=== PATIENT | female | born 1970 | race Caucasian/White ===

== ENCOUNTER 2021-04-09 16:30 | Emergency (ER) | payer SELFPAY ==
[~2021-04-09] VITALS: Ht 165.1 cm; Wt 81.6 kg
--- NOTE | 2021-04-09 16:48 | EKG ---
[address] [address] Test Date: 2021-04-09 Test Time: 16:40:27 Pat Name: MARY JO SINGLETARY Department: Room: Gender: F [employer]: FAITH : 1970 Requested By: CRISTIAN GOYAL Order Number: [id number] Reading MD: Measurements Intervals [place] Rate: 74 P: 56 MI: 160 QRS: 14 QRSD: 98 T: 92 QT: 412 QTc: 458 Interpretive Statements SINUS RHYTHM QRS(T) CONTOUR ABNORMALITY CONSISTENT WITH INFERIOR INFARCT PROBABLY OLD T ABNORMALITY IN HIGH LATERAL LEADS ABNORMAL ECG RI6.02 No previous ECG available for comparison
[2021-04-09 17:10] LABS: BASO # 0.1 x10^3/uL (0.0-0.2); BASO % 1 % (0-3); EOS # 0.2 x10^3/uL (0.0-0.7); EOS % 2 % (0-3); HEMATOCRIT 43.2 % (36.0-47.0); HEMOGLOBIN 14.4 g/dL (12.0-15.5); LYMPH # 3.4 x10^3/uL (1.0-4.8); LYMPH % 29 % (24-48); MEAN CORPUSCULAR HEMOGLOBIN 31 pg (25-35); MEAN CORPUSCULAR HGB CONC 33 g/dL (31-37); MEAN CORPUSCULAR VOLUME 92 fL (79-100); MONO # 0.7 x10^3/uL (0.0-1.1); MONO % 6 % (0-9); NEUT # 7.2 x10^3uL (1.8-7.7); NEUT % 62 % (31-73); PLATELET COUNT 244 x10^3/uL (140-400); RED CELL DISTRIBUTION WIDTH 14.6 % (11.5-14.5); WHITE BLOOD COUNT 11.6 x10^3/uL (4.0-11.0)
[2021-04-09 17:17] LABS: CALCIUM 9.3 mg/dL (8.5-10.1); CREATININE 1.1 mg/dL (0.6-1.0); GFR 52.2; POTASSIUM 4.1 mmol/L (3.5-5.1)
[2021-04-09 17:22] LABS: ALBUMIN 3.8 g/dL (3.4-5.0); ALBUMIN/GLOBULIN RATIO 1.4 (1.0-1.7); TOTAL BILIRUBIN 0.3 mg/dL (0.2-1.0); TOTAL PROTEIN 6.6 g/dL (6.4-8.2)
--- NOTE | 2021-04-09 17:30 | RAD ---
AP chest. HISTORY: Chest pain AP view was taken of the chest. Lungs are clear. Heart is normal in size. There is no pleural effusio n. IMPRESSION: 1. No acute infiltrates. Electronically signed by: Tone Rick MD (04/09/2021 5:28 PM) [facility]
--- NOTE | 2021-04-09 17:33 | RAD ---
CT scan of the head without contrast 04/09/2021 Clinical History: Altered mental status Technique: Unenhanced, contiguous, 5 mm axial sections were obtained through the head. One or more of the following individualized dose reduction techniques were utilized for this study: 1. Automated exposure control. 2. Adjustment of the mA and/or kV according to patient size. 3. Use of iterative reconstruction technique. Findings: The ventricles and sulci are within normal limits in size and configuration. No acute paren chymal abnormality is seen. No extra-axial fluid collection is noted. No skull fracture is seen. A 1. 8 cm well-defined soft tissue nodule seen involving the superior right frontal parietal scalp. A smal ler nodule is seen lateral to this which measures 7 mm in size. These may represent sebaceous cysts, fibromas or possibly hemangiomas. Impression: No acute intracranial abnormality is seen. Electronically signed by: Elie Bedoya MD (04/09/2021 5:31 PM) [id number]
--- NOTE | 2021-04-09 17:42 | PHYS DOC ---
Past History Additional Past Medical Histor: uknown if there is other hx other than NE w/ stents (CRISTIAN GOYAL DO) Past Surgical History: Other Additional Past Surgical Histo: stents, unknown if other hx of sx's (CRISTIAN GOYAL DO) Alcohol Use: None (CRISTIAN GOYAL DO) General Adult EDM: Chief Complaint: SHORTNESS OF BREATH HPI: HPI: 50-year-old female presents via EMS with leg spasms and shortness of breath. The patient states that she was cleaning off her back porch when she started to have spasms of her lower legs. Her upper leg muscles just keep jhonny. Patient also felt like she was that short of breath and so ambulance was called by her family. Patient states she has never had an episode "this bad before". She does not go any details about what kind of previous episode she has had. She is not very forthcoming with information in general. She states the only medication that she takes is tramadol but does not tell me what it is for. She states that she took 1 of those today. Denies fever or chills. (CRISTIAN GOYAL DO) Review of Systems: Review of Systems: Constitutional: Denies fever or chills Eyes: Denies change in visual acuity HENT: Denies nasal congestion or sore throat Respiratory: Shortness of breath Cardiovascular: Denies chest pain or edema GI: Denies abdominal pain, nausea, vomiting, bloody stools or diarrhea : Denies dysuria Musculoskeletal: Denies back pain or joint pain Integument: Denies rash Neurologic: Leg muscle spasms. Denies headache, focal weakness or sensory changes Endocrine: Denies polyuria or polydipsia Lymphatic: Denies swollen glands Psychiatric: Denies depression or anxiety (CRISTIAN GOYAL DO) Allergies: Allergies: Allergies Coded Allergies Type Severity Reaction Last Updated Verified No Known Drug Allergies 04/09/21 No (CRISTIAN GOYAL DO) Physical Exam: PE: Constitutional: Well developed, well nourished, no acute distress, non-toxic appearance. [] HENT: Normocephalic, atraumatic, bilateral external ears normal, oropharynx moist, no oral exudates, nose normal. [] Eyes: PERRLA, EOMI, conjunctiva normal, no discharge. [] Neck: Normal range of motion, no tenderness, supple, no stridor. [] Cardiovascular: Heart rate regular rhythm, no murmur [] Lungs & Thorax: Bilateral breath sounds clear to auscultation [] Abdomen: Bowel sounds normal, soft, no tenderness, no masses, no pulsatile mass es. [] Skin: Warm, dry, no erythema, no rash. [] Back: No tenderness, no CVA tenderness. [] Extremities: No tenderness, no cyanosis, no clubbing, ROM intact, no edema. [] Neurologic: Jhonny of the upper leg muscles. Alert and oriented X 3, no focal deficits noted. [] Psychologic: Affect uncooperative, judgement normal, mood anxious. [] (CRISTIAN GOYAL DO) Current Patient Data: Labs: Laboratory Tests Test 04/09/21 16:46 White Blood Count 11.6 x10^3/uL (4.0-11.0) H Red Blood Count 4.70 x10^6/uL (3.50-5.40) Hemoglobin 14.4 g/dL (12.0-15.5) Hematocrit 43.2 % (36.0-47.0) Mean Corpuscular Volume 92 fL (79-100) Mean Corpuscular Hemoglobin 31 pg (25-35) Mean Corpuscular Hemoglobin Concent 33 g/dL (31-37) Red Cell Distribution Width 14.6 % (11.5-14.5) H Platelet Count 244 x10^3/uL (140-400) Neutrophils (%) (Auto) 62 % (31-73) Lymphocytes (%) (Auto) 29 % (24-48) Monocytes (%) (Auto) 6 % (0-9) Eosinophils (%) (Auto) 2 % (0-3) Basophils (%) (Auto) 1 % (0-3) Neutrophils # (Auto) 7.2 x10^3uL (1.8-7.7) Lymphocytes # (Auto) 3.4 x10^3/uL (1.0-4.8) Monocytes # (Auto) 0.7 x10^3/uL (0.0-1.1) Eosinophils # (Auto) 0.2 x10^3/uL (0.0-0.7) Basophils # (Auto) 0.1 x10^3/uL (0.0-0.2) Sodium Level 139 mmol/L (136-145) Potassium Level 4.1 mmol/L (3.5-5.1) Chloride Level 103 mmol/L (98-107) Carbon Dioxide Level 27 mmol/L (21-32) Anion Gap 9 (6-14) Blood Urea Nitrogen 15 mg/dL (7-20) Creatinine 1.1 mg/dL (0.6-1.0) H Estimated GFR (Cockcroft-Gault) 52.2 BUN/Creatinine Ratio 14 (6-20) Glucose Level 103 mg/dL (70-99) H Calcium Level 9.3 mg/dL (8.5-10.1) Total Bilirubin 0.3 mg/dL (0.2-1.0) Aspartate Amino Transferase (AST) 21 U/L (15-37) Alanine Aminotransferase (ALT) 37 U/L (14-59) Alkaline Phosphatase 92 U/L (46-116) Troponin I High Sensitivity 12 ng/L (4-50) Total Protein 6.6 g/dL (6.4-8.2) Albumin 3.8 g/dL (3.4-5.0) Albumin/Globulin Ratio 1.4 (1.0-1.7) Vital Signs: Vital Signs Date Time Temp Pulse Resp B/P (MAP) Pulse Ox O2 Delivery O2 Flow Rate FiO2 04/09/21 17:20 97.3 72 20 135/74 (94) 95 Room Air (CRISTIAN OGYAL DO) EKG: EKG: Sinus rhythm, rate 74, normal axis, no ST elevations or depressions. [] (CRISTIAN GOYAL DO) Radiology/Procedures: Radiology/Procedures: [] Impressions: AP chest. HISTORY: Chest pain AP view was taken of the chest. Lungs are clear. Heart is normal in size. There is no pleural effusion. IMPRESSION: 1. No acute infiltrates. Electronically signed by: Tone Rick MD (04/09/2021 5:28 PM) [facility] DICTATED AND SIGNED BY: TONE RICK MD DATE: 04/09/211726 CC: CRISTIAN GOYAL DO; PCP,NO ~MTH0 0 CT scan of the head without contrast 04/09/2021 Clinical History: Altered mental status Technique: Unenhanced, contiguous, 5 mm axial sections were obtained through the head. One or more of the following individualized dose reduction techniques were utilized for this study: 1. Automated exposure control. 2. Adjustment of the mA and/or kV according to patient size. 3. Use of iterative reconstruction technique. Findings: The ventricles and sulci are within normal limits in size and configuration. No acute parenchymal abnormality is seen. No extra-axial fluid collection is noted. No skull fracture is seen. A 1.8 cm well-defined soft tissue nodule seen involving the superior right frontal parietal scalp. A smaller nodule is seen lateral to this which measures 7 mm in size. These may represent sebaceous cysts, fibromas or possibly hemangiomas. Impression: No acute intracranial abnormality is seen. Electronically signed by: Elie Bedoya MD (04/09/2021 5:31 PM) [id number] DICTATED AND SIGNED BY: ELIE BEDOYA MD DATE: 04/09/211724 CC: CRISTIAN GOYAL DO; PCP,NO ~MTH0 0 (CRISTIAN GOYAL DO) Radiology/Procedures: [place] [id number] IMAGING REPORT Signed PATIENT: MARY JO SINGLETARYACCOUNT: [id number] : 1970 LOCATION: ER AGE: 50 SEX: F EXAM STATUS: REG ER ORD. PHYSICIAN: CRISTIAN GOYAL DO REASON: AMS PROCEDURE: CT HEAD WO CONTRAST CT scan of the head without contrast 04/09/2021 Clinical History: Altered mental status Technique: Unenhanced, contiguous, 5 mm axial sections were obtained through the head. One or more of the following individualized dose reduction techniques were utilized for this study: 1. Automated exposure control. 2. Adjustment of the mA and/or kV according to patient size. 3. Use of iterative reconstruction technique. Findings: The ventricles and sulci are within normal limits in size and configuration. No acute parenchymal abnormality is seen. No extra-axial fluid collection is noted. No skull fracture is seen. A 1.8 cm well-defined soft tissue nodule seen involving the superior right frontal parietal scalp. A smaller nodule is seen lateral to this which measures 7 mm in size. These may represent sebaceous cysts, fibromas or possibly hemangiomas. Impression: No acute intracranial abnormality is seen. Electronically signed by: Elie Bedoya MD (04/09/2021 5:31 PM) [id number] DICTATED AND SIGNED BY: ELIE BEDOYA MD DATE: 04/09/211724 CC: CRISTIAN GOYAL DO; PCP,NO ~MTH0 [address] [place] [id number] IMAGING REPORT Signed PATIENT: JAMAL SINGLETARYUNT: [id number] : 1970 LOCATION: ER AGE: 50 SEX: F EXAM STATUS: REG ER ORD. PHYSICIAN: CRISTIAN GOYAL DO REASON: AMS PROCEDURE: CT HEAD WO CONTRAST CT scan of the head without contrast 04/09/2021 Clinical History: Altered mental status Technique: Unenhanced, contiguous, 5 mm axial sections were obtained through the head. One or more of the following individualized dose reduction techniques were utilized for this study: 1. Automated exposure control. 2. Adjustment of the mA and/or kV according to patient size. 3. Use of iterative reconstruction technique. Findings: The ventricles and sulci are within normal limits in size and configuration. No acute parenchymal abnormality is seen. No extra-axial fluid collection is noted. No skull fracture is seen. A 1.8 cm well-defined soft tissue nodule seen involving the superior right frontal parietal scalp. A smaller nodule is seen lateral to this which measures 7 mm in size. These may represent sebaceous cysts, fibromas or possibly hemangiomas. Impression: No acute intracranial abnormality is seen. Electronically signed by: Elie Bedoya MD (04/09/2021 5:31 PM) [id number] DICTATED AND SIGNED BY: ELIE BEDOYA MD DATE: 04/09/211724 CC: CRISTIAN GOYAL DO; PCP,NO ~MTH0 0 (KELLIE ROSALES MD) Heart Score: C/O Chest Pain: N/A Risk Factors: Risk Factors: DM, Current or recent (<one month) smoker, HTN, HLP, family history of CAD, obesity. Risk Scores: Score 0 - 3: 2.5% MACE over next 6 weeks - Discharge Home Score 4 - 6: 20.3% MACE over next 6 weeks - Admit for Clinical Observation Score 7 - 10: 72.7% MACE over next 6 weeks - Early Invasive Strategies (CRISTIAN GOYAL DO) Course & Med Decision Making: Course & Med Decision Making Pertinent Labs and Imaging studies reviewed. (See chart for details) The patient has an odd affect. She is not very cooperative in answering questions. I can't tell if the contractions of her legs are voluntary or involuntary. They do stop for a period of time seemingly at random. Patient's labs are unremarkable. Her chest is negative for acute findings. I will treat her with IV Ativan to see if this helps. The patient's head CT is negative for acute findings. I do not have any evidence to cause the patient's symptoms. I am signing patient out to Dr. Rosales at 1800. [] (CRISTIAN GOYAL DO) Course & Med Decision Making See Dr Goyal chart prior shift change for details. Pending UA results. Impression. Impression: 1. Mild Leukocytosis 11.g 2. Dehydrattion 3. Elevated Creat. 1.1 4. Tobacco and Marijuana use (KELLIE ROSALES MD) Dragon Disclaimer: Dragon Disclaimer: This electronic medical record was generated, in whole or in part, using a voice recognition dictation system. (CRISTIAN GOYAL DO) Departure Departure: Referrals: PCP,NO (PCP) CRISTIAN GOYAL DO Apr 09, 2021 17:42 KELLIE ROSALES MD Apr 09, 2021 18:50
[2021-04-09 21:20] LABS: BARBITURATES NEG (NEG); BENZODIAZEPINES NEG (NEG); CANNABINOIDS POS (NEG); COCAINE NEG (NEG); METHADONE NEG (NEG); OPIATES NEG (NEG); PHENCYCLIDINE NEG (NEG)
[2021-04-09 21:22] LABS: AMPHETAMINE/METHAMPHETAMINE NEG (NEG)
[2021-04-09 21:38] LABS: BACTERIA,URINE FEW /HPF (0-FEW); BILIRUBIN,URINE NEG (NEG); CLARITY,URINE CLEAR; COLOR,URINE YELLOW; GLUCOSE,URINE NEG (NEG); NITRITE,URINE NEG (NEG); SQUAMOUS EPITHELIAL CELL,UR FEW /LPF; UROBILINOGEN,URINE 0.2 mg/dL (0.2 mg/dL)
[2021-04-09] MEDS ORDERED: ALBUTEROL SULFATE 8GM INHALER. INH ONE (22:00)
[2021-04-09 22:46] LABS: INFLUENZA A PATIENT NEGATIVE (NEGATIVE); INFLUENZA B PATIENT NEGATIVE (NEGATIVE)
[2021-04-09 23:20] VITALS: BP 128/62
== END 2021-04-09 23:20 | disposition home or self-care (01) ==
LOC: ER 16:30
DX: D72.829 Elevated white blood cell count, unspecified (principal); E86.0 Dehydration; R94.4 Abnormal results of kidney function studies; F12.10 Cannabis abuse, uncomplicated; R41.82 Altered mental status, unspecified; Z20.822 Contact with and (suspected) exposure to COVID-19
CPT/HCPCS: 36415; 70450; 71045; 80053; 80307; 81001; 84484; 85025; 87426; 87804; 93005; 94640; 96374; 99285; C9803; G0480; J2060; U0003; 94664